=== PATIENT | male | born 1970 | race African-American/Black ===

== ENCOUNTER 2019-08-03 12:35 | Inpatient (IN) | payer OTHER ==
[2019-08-03 13:08] VITALS: BMI 44.9
--- NOTE | 2019-08-03 15:30 | HP ---
CIWA Score Nausea/Vomitin Muscle Tremors: 3 Anxiety: 2 Agitation: 2 Paroxysmal Sweats: 1-Minimal Palms Moist Orientation: 0-Oriented Tacttile Disturbances: 1-Very Mild Itch/Numbness Auditory Disturbances: 0-None Visual Disturbances: 0-None Headache: 2-Mild CIWA-Ar Total Score: 13 - Admission Criteria OASAS Guidelines: Admission for Medically Managed Detox: Requires at least one of the followin. CIWA greater than 12 2. Seizures within the past 24 hours 3. Delirium tremens within the past 24 hours 4. Hallucinations within the past 24 hours 5. Acute intervention needed for co occurring medical disorder 6. Acute intervention needed for co occurring psychiatric disorder 7. Severe withdrawal that cannot be handled at a lower level of care (continued vomiting, continued diarrhea, abnormal vital signs) requiring intravenous medication and/or fluids 8. Admission ROS S - HPI Chief Complaint: i need help to stop drinking alcohol,cocaine,heroin abused Allergies/Adverse Reactions: Allergies Allergy/AdvReac Type Severity Reaction Status Date / Time Penicillins Allergy Verified 08/03/19 12:57 History of Present Illness: this 48 years old with alcohol and cocaine dependence seeking detox,heroin abused,withdrawal symptom, never been in detox before denied seizure denied syncope nicotine dependence 1 pack/day plan to go to rehab after detox unemployed Exam Limitations: No Limitations - Ebola screening Have you traveled outside of the country in the last 21 days: No Have you had contact with anyone from an Ebola affected area: No Do you have a fever: No - Review of Systems Constitutional: Malaise, Night Sweats, Changes in sleep EENT: reports: Tearing, Nose Congestion Respiratory: reports: No Symptoms reported Cardiac: reports: No Symptoms Reported GI: reports: Diarrhea, Nausea, Abdominal cramping : reports: No Symptoms Reported Musculoskeletal: reports: Back Pain, Muscle Pain Integumentary: reports: Dryness Neuro: reports: Headache, Tremors Endocrine: reports: No Symptoms Reported Hematology: reports: No Symptoms Reported Psychiatric: reports: No Sypmtoms Reported, Judgement Intact, Mood/Affect Appropiate, Orientated x3 Other Systems: Reviewed and Negative Patient History - Patient Medical History Hx Anemia: No Hx Asthma: No Hx Chronic Obstructive Pulmonary Disease (COPD): No Hx Cancer: No Hx Cardiac Disorders: No Hx Congestive Heart Failure: No Hx Hypertension: No Hx Hypercholesterolemia: No Hx Pacemaker: No HX Cerebrovascular Accident: No Hx Seizures: No Hx Dementia: No Hx Diabetes: No Hx Gastrointestinal Disorders: No Hx Liver Disease: No Hx Genitourinary Disorders: No Hx Sexually Transmitted Disorders: No Hx Renal Disease (ESRD): No Hx Thyroid Disease: No Hx Human Immunodeficiency Virus (HIV): No (last 05/21 negative) Hx Hepatitis C: No Hx Depression: No Hx Suicide Attempt: No Hx Bipolar Disorder: No Hx Schizophrenia: No Other Medical History: no suicidal,no homicidal,fx of left wrist,fx of right ankle - Patient Surgical History Past Surgical History: Yes Hx Orthopedic Surgery: Yes (fx right ankle 05/20) - PPD History Previous Implant?: Yes Documented Results: Negative w/o proof Implanted On Prior [facility] Admission?: No PPD to be Administered?: Yes - Smoking Cessation Smoking history: Current every day smoker Have you smoked in the past 12 months: Yes Aproximately how many cigarettes per day: 20 Cigars Per Day: 0 Hx Chewing Tobacco Use: No Initiated information on smoking cessation: Yes 'Breaking Loose' booklet given: 08/03/19 - Substances abused Alcohol Substance route: Oral Frequency: Daily Amount used: 1 pint of sara & one 6 pk Age of first use: 12 Date of last use: 08/03/19 Heroin Substance route: Inhalation Frequency: 1-2 times per week Amount used: 1 bag Age of first use: 48 Date of last use: 08/02/19 Cocaine Substance route: Smoking Frequency: 1-2 times per week Amount used: $800 Age of first use: 38 Date of last use: 08/03/19 Admission Physical Exam [facility] - Vital Signs Vital Signs: Vital Signs - 24 hr 08/03/19 08/03/19 12:58 14:49 Temperature 97.2 F L 97.2 F L Pulse Rate 68 68 Respiratory 20 20 Rate Blood Pressure 133/88 133/88 - Physical General Appearance: Yes: Moderate Distress, Tremorous, Irritable, Sweating, Anxious HEENTM: Yes: Normal ENT Inspection, DUSTIN, Pharynx Normal Respiratory: Yes: Within Normal Limits, Lungs Clear, Normal Breath Sounds Neck: Yes: Supple, Trachea in good position Breast: Yes: Within Normal Limits Cardiology: Yes: Within Normal Limits, Regular Rhythm, Regular Rate, S1, S2 Abdominal: Yes: Within Normal Limits, Normal Bowel Sounds, Non Tender, Soft Genitourinary: Yes: Within Normal Limits Back: Yes: Muscle Spasm Musculoskeletal: Yes: Back pain, Muscle Pain Extremities: Yes: Tremors, Other (scars in right ankle) Neurological: Yes: flow specialist II-XII NML intact, Alert, Motor Strength 5/5 Integumentary: Yes: Dry Lymphatic: Yes: Within Normal Limits - Diagnostic (1) Alcohol dependence with uncomplicated withdrawal Current Visit: Yes Status: Acute (2) Cocaine dependence Current Visit: Yes Status: Acute (3) Heroin abuse Current Visit: Yes Status: Acute (4) Fracture of right ankle Current Visit: Yes Status: Acute (5) Nicotine dependence Current Visit: Yes Status: Acute Cleared for Admission S - Detox or Rehab [facility] Level of Care: Medically Managed (patine did not want to bedetox for heroin, stated use it once) Detox Regimen/Protocol: Librium Breathalyzer - Breathalyzer Breathalyzer: 0 Urine Drug Screen - Test Device Lot number: [id number] Expiration date: 04/01/21 - Control Is test valid?: Yes - Results Drug screen NEGATIVE: No Urine drug screen results: GALA-Cocaine, FEN-Fentanyl Inpatient Rehab Admission - Rehab Decision to Admit Inpatient rehab admission?: No
[2019-08-03] MEDS ORDERED: IBUPROFEN 400 MG TABLET (FP) PO PRN (15:43)
[2019-08-03] MEDS ORDERED: ACETAMINOPHEN 325 MG TABLET (FP) PO PRN ×2 (15:43)
[2019-08-03] MEDS ORDERED: METHOCARBAMOL 500 MG TABLET PO PRN (15:43)
[2019-08-03] MEDS ORDERED: MAG HYDROX/AL HYDROX/SIMETH 30 ML UNIT-DOSE CUP PO PRN (15:43)
[2019-08-03] MEDS ORDERED: MENTHOL/PHENOL 1 EACH UD MM PRN (15:43)
[2019-08-03] MEDS ORDERED: MELATONIN 5 MG TABLETS PO PRN (15:43)
[2019-08-03] MEDS ORDERED: MAGNESIUM CITRATE 300 ML BOTTLE PO PRN (15:43)
[2019-08-03] MEDS ORDERED: hydrOXYzine PAMOATE 25 MG CAPSULE (FP) PO PRN (15:43)
[2019-08-03] MEDS ORDERED: chlordiazePOXIDE HCL 25 MG CAPSULE PO PRN (15:43)
[2019-08-03] MEDS ORDERED: BISMUTH SUBSALICYLATE 524 MG/30 ML UD PO PRN (15:43)
[2019-08-03] MEDS ORDERED: MAGNESIUM HYDROX 2400MG/30ML ORAL SUSPENSION 30 ML CUP PO PRN (15:43)
[2019-08-03] MEDS: chlordiazePOXIDE HCL 25 MG CAPSULE PO SCH ×2 (17:39→22:01)
[2019-08-03] MEDS: THIAMINE HCL 100 MG TABLET (FP) PO SCH (22:01)
[2019-08-04] MEDS: chlordiazePOXIDE HCL 25 MG CAPSULE PO SCH ×4 (05:55→23:11)
[2019-08-04 09:46] LABS: HEMATOCRIT 42.8 % (35.4-49); HEMOGLOBIN 14.1 GM/dL (11.7-16.9); MCH 29.7 pg (25.7-33.7); MCHC 32.8 g/dl (32.0-35.9); MEAN CELL VOLUME 90.4 fl (80-96); MEAN PLT VOLUME 9.6 fl (7.5-11.1); PLATELET COUNT 215 K/MM3 (134-434); RBC 4.74 M/mm3 (4.00-5.60); WHITE BLOOD COUNT 5.6 K/mm3 (4.0-10.0)
[2019-08-04 10:08] LABS: ALBUMIN 3.3 g/dl (3.4-5.0); BILIRUBIN,TOTAL 0.9 mg/dL (0.2-1); BLOOD UREA NITROGEN 12.1 mg/dL (7-18); CALCIUM 8.7 mg/dL (8.5-10.1); CREATININE 1.1 mg/dL (0.55-1.3); POTASSIUM 3.9 mmol/L (3.5-5.1); TOT PROT 6.6 g/dl (6.4-8.2)
[2019-08-04] MEDS: PRENATAL VITAMINS W/ FOLIC ACID TABLET (FP) PO SCH (10:11)
[2019-08-04 12:14] LABS: SICKLE CELL SCREEN NEGATIVE (NEGATIVE)
--- NOTE | 2019-08-04 12:39 | PN ---
[facility] CIWA - CIWA Score Nausea/Vomitin-No Nausea/No Vomiting Muscle Tremors: 3 Anxiety: 3 Agitation: 3 Paroxysmal Sweats: 2 Orientation: 0-Oriented Tacttile Disturbances: 0-None Auditory Disturbances: 0-None Visual Disturbances: 0-None Headache: 0-None Present CIWA-Ar Total Score: 11 S Progress Note (SOAP) Subjective: tired sweats interrupted sleep agitation Objective: 08/04/19 12:38 Vital Signs Temperature 97.7 F 08/04/19 09:18 Pulse Rate 63 08/04/19 09:18 Respiratory Rate 18 08/04/19 09:18 Blood Pressure 103/51 L 08/04/19 09:18 O2 Sat by Pulse Oximetry (%) Laboratory Tests 08/04/19 08/04/19 07:45 07:45 WBC 5.6 RBC 4.74 Hgb 14.1 Hct 42.8 MCV 90.4 MCH 29.7 MCHC 32.8 RDW 15.0 Plt Count 215 MPV 9.6 Sickle Cell Screen Negative Sodium 141 Potassium 3.9 Chloride 106 Carbon Dioxide 28 Anion Gap 7 L BUN 12.1 Creatinine 1.1 Est GFR (CKD-EPI)AfAm 90.24 Est GFR (CKD-EPI)NonAf 77.86 Random Glucose 77 Calcium 8.7 Total Bilirubin 0.9 AST 18 ALT 22 Alkaline Phosphatase 74 Total Protein 6.6 Albumin 3.3 L labs noted aaox3 lying down no acute distress Assessment: 08/04/19 12:38 withdrawals Plan: continue detox increase fluids
[2019-08-04] MEDS: THIAMINE HCL 100 MG TABLET (FP) PO SCH (23:11)
[2019-08-05] MEDS: chlordiazePOXIDE HCL 25 MG CAPSULE PO SCH ×4 (06:55→22:17)
[2019-08-05] MEDS: PRENATAL VITAMINS W/ FOLIC ACID TABLET (FP) PO SCH (10:26)
--- NOTE | 2019-08-05 10:48 | PN ---
S CIWA - CIWA Score Nausea/Vomitin-Mild Nausea/No Vomiting Muscle Tremors: 2 Anxiety: 2 Agitation: 2 Paroxysmal Sweats: 2 Orientation: 0-Oriented Tacttile Disturbances: 0-None Auditory Disturbances: 0-None Visual Disturbances: 0-None Headache: 0-None Present CIWA-Ar Total Score: 9 BHS Progress Note (SOAP) Subjective: Interrupted sleep Objective: 08/05/19 10:45 Last Vital Signs Temp Pulse Resp BP Pulse Ox 97.9 F 68 20 123/80 08/05/19 09:26 08/05/19 09:26 08/05/19 09:26 08/05/19 09:26 Laboratory Tests 08/04/19 08/04/19 08/04/19 07:45 07:45 07:45 WBC 5.6 RBC 4.74 Hgb 14.1 Hct 42.8 MCV 90.4 MCH 29.7 MCHC 32.8 RDW 15.0 Plt Count 215 MPV 9.6 Sickle Cell Screen Negative Sodium 141 Potassium 3.9 Chloride 106 Carbon Dioxide 28 Anion Gap 7 L BUN 12.1 Creatinine 1.1 Est GFR (CKD-EPI)AfAm 90.24 Est GFR (CKD-EPI)NonAf 77.86 Random Glucose 77 Calcium 8.7 Total Bilirubin 0.9 AST 18 ALT 22 Alkaline Phosphatase 74 Total Protein 6.6 Albumin 3.3 L RPR Titer Nonreactive Labs reviewed: albumin 3.3 Assessment: 08/05/19 10:45 Withdrawal sxs Mild hypoalbuminemia noted Plan: Continue detox Encouraged PO water intake Hypoalbuminemia, mild: encouraged diet
[2019-08-05] MEDS: THIAMINE HCL 100 MG TABLET (FP) PO SCH (22:17)
[2019-08-06] MEDS ORDERED: chlordiazePOXIDE HCL 10 MG CAPSULE PO PRN
[2019-08-06] MEDS ORDERED: chlordiazePOXIDE HCL 10 MG CAPSULE PO SCH (05:00)
--- NOTE | 2019-08-06 09:04 | PN ---
[facility] CIWA - CIWA Score Nausea/Vomitin-Mild Nausea/No Vomiting Muscle Tremors: 1-None Visible, but [place] Anxiety: 2 Agitation: 2 Paroxysmal Sweats: No Perspiration Orientation: 0-Oriented Tacttile Disturbances: 1-Very Mild Itch/Numbness Auditory Disturbances: 1-Very Mild Visual Disturbances: 0-None Headache: 1-Very Mild CIWA-Ar Total Score: 9 BHS Progress Note (SOAP) Subjective: alert,irritable,anxious,interrupted sleep,pain in the ankle,body Objective: 08/06/19 09:03 Vital Signs Temperature 97.2 F L 08/06/19 06:00 Pulse Rate 75 08/06/19 06:00 Respiratory Rate 20 08/06/19 06:00 Blood Pressure 121/74 08/06/19 06:00 O2 Sat by Pulse Oximetry (%) Assessment: 08/06/19 09:04 withdrawal symptom Plan: continue detox librium regimen
[2019-08-06 09:14] VITALS: BP 116/73; PULSE 72; TEMP 97.7
--- NOTE | 2019-08-06 10:31 | PN ---
S Progress Note Note: patient would like to leave for [facility] and has appointment today, stable for discharge,follow up with after care program as arrangement
--- NOTE | 2019-08-06 10:34 | DS ---
[facility] Detox Discharge Summary Admission Date: 08/03/19 Discharge Date: 08/06/19 - History Present History: Alcohol Dependence, Cocaine Dependence Additional Comments: stable for discharge ,follow up with [facility] residential as arrangement Pertinent Past History: heroin abused history of fx of right ankle ambulation with cane - Physical Exam Results Vital Signs: Vital Signs Temperature 97.7 F 08/06/19 09:13 Pulse Rate 72 08/06/19 09:13 Respiratory Rate 18 08/06/19 09:13 Blood Pressure 116/73 08/06/19 09:13 O2 Sat by Pulse Oximetry (%) Pertinent Admission Physical Exam Findings: withdrawal signs and symptom Laboratory Last Values WBC 5.6 K/mm3 (4.0-10.0) 08/04/19 07:45 RBC 4.74 M/mm3 (4.00-5.60) 08/04/19 07:45 Hgb 14.1 GM/dL (11.7-16.9) 08/04/19 07:45 Hct 42.8 % (35.4-49) 08/04/19 07:45 MCV 90.4 fl (80-96) 08/04/19 07:45 MCH 29.7 pg (25.7-33.7) 08/04/19 07:45 MCHC 32.8 g/dl (32.0-35.9) 08/04/19 07:45 RDW 15.0 % (11.9-15.9) 08/04/19 07:45 Plt Count 215 K/MM3 (134-434) 08/04/19 07:45 MPV 9.6 fl (7.5-11.1) 08/04/19 07:45 Sickle Cell Screen Negative (NEGATIVE) 08/04/19 07:45 Sodium 141 mmol/L (136-145) 08/04/19 07:45 Potassium 3.9 mmol/L (3.5-5.1) 08/04/19 07:45 Chloride 106 mmol/L (98-107) 08/04/19 07:45 Carbon Dioxide 28 mmol/L (21-32) 08/04/19 07:45 Anion Gap 7 MMOL/L (8-16) L 08/04/19 07:45 BUN 12.1 mg/dL (7-18) 08/04/19 07:45 Creatinine 1.1 mg/dL (0.55-1.3) 08/04/19 07:45 Est GFR (CKD-EPI)AfAm 90.24 08/04/19 07:45 Est GFR (CKD-EPI)NonAf 77.86 08/04/19 07:45 Random Glucose 77 mg/dL (74-106) 08/04/19 07:45 Calcium 8.7 mg/dL (8.5-10.1) 08/04/19 07:45 Total Bilirubin 0.9 mg/dL (0.2-1) 08/04/19 07:45 AST 18 U/L (15-37) 08/04/19 07:45 ALT 22 U/L (13-61) 08/04/19 07:45 Alkaline Phosphatase 74 U/L (45-117) 08/04/19 07:45 Total Protein 6.6 g/dl (6.4-8.2) 08/04/19 07:45 Albumin 3.3 g/dl (3.4-5.0) L 08/04/19 07:45 RPR Titer Nonreactive (NONREACTIVE) 08/04/19 07:45 - Treatment Hospital Course: Detox Protocol Followed, Detoxed Safely, Responded well, Discharged Condition Good - Medication Discharge Medications: Ambulatory Orders Naproxen [Naprosyn -] 375 mg PO PRN PRN 08/03/19 - Diagnosis (1) Alcohol dependence with uncomplicated withdrawal Current Visit: Yes Status: Acute (2) Cocaine dependence Current Visit: Yes Status: Acute (3) Heroin abuse Current Visit: Yes Status: Acute (4) Fracture of right ankle Current Visit: Yes Status: Acute (5) Nicotine dependence Current Visit: Yes Status: Acute - AMA Did Patient Leave Against Medical Advice: No
--- NOTE | 2019-08-06 11:05 | EKG ---
Test Reason : Blood Pressure : / mmHG Vent. Rate : 058 BPM Atrial Rate : 058 BPM P-R Int : 144 ms QRS Dur : 094 ms QT Int : 438 ms P-R-T Axes : 015 025 -13 degrees QTc Int : 429 ms SINUS BRADYCARDIA WITH PREMATURE ATRIAL COMPLEXES NONSPECIFIC T WAVE ABNORMALITY ABNORMAL ECG NO PREVIOUS ECGS AVAILABLE Confirmed by ANANYA BAZZI, PAIGE ([id number]) on 08/06/2019 11:04:49 AM Referred By: Confirmed By:PAIGE HARE MD
[2019-08-07] MEDS ORDERED: chlordiazePOXIDE HCL 10 MG CAPSULE PO SCH (05:00)
[2019-08-08] MEDS ORDERED: chlordiazePOXIDE HCL 10 MG CAPSULE PO ONE (05:00)
== END 2019-08-06 11:20 | disposition home or self-care (01) | DRG 773 ==
LOC: YASAS 12:35 → Y6N 15:52
PROVIDERS: ADMIT Allergy & Immunology; ATTEND Allergy & Immunology
PROC: HZ2ZZZZ Detoxification Services for Substance Abuse Treatment (ICD-10-PCS; principal; 2019-08-03)
DX: F10.230 Alcohol dependence with withdrawal, uncomplicated (principal); F14.20 Cocaine dependence, uncomplicated; F11.10 Opioid abuse, uncomplicated; F17.210 Nicotine dependence, cigarettes, uncomplicated; R77.0 Abnormality of albumin; Z88.0 Allergy status to penicillin; Z56.0 Unemployment, unspecified
CPT/HCPCS: 36415; 80053; 85027; 85660; 86593; 93005; 93010

== ENCOUNTER 2022-09-06 12:23 | Inpatient (IN) | payer OTHER ==
[2022-09-06 13:43] VITALS: BMI 46.1
[2022-09-06] MEDS ORDERED: IBUPROFEN 400 MG TABLET (FP) PO PRN (16:14)
[2022-09-06] MEDS ORDERED: P-EPHED 60MG/TRIPROLIDI 2.5MG TABLET PO PRN (16:14)
[2022-09-06] MEDS ORDERED: BENZOCAINE/MENTHOL (CHLORASEPTIC ) LOZENGE MM PRN (16:14)
[2022-09-06] MEDS ORDERED: NICOTINE 10 MG CARTRIDGE (INHALER) IH PRN (16:14)
[2022-09-06] MEDS ORDERED: MAGNESIUM HYDROX 2400MG/30ML ORAL SUSPENSION 30 ML CUP PO PRN (16:14)
[2022-09-06] MEDS ORDERED: MAG HYDROX/AL HYDROX/SIMETH 30 ML UNIT-DOSE CUP PO PRN (16:14)
[2022-09-06] MEDS ORDERED: guaiFENesin 200 MG/10 ML 10 ML UNIT-DOSE CUPS PO PRN (16:14)
[2022-09-06] MEDS ORDERED: hydrOXYzine PAMOATE 25 MG CAPSULE (FP) PO PRN (16:14)
[2022-09-06] MEDS ORDERED: POLYETHYLENE GLYCOL (HEALTHYLAX) 3350 17 GM PACKET PO PRN (16:14)
[2022-09-06] MEDS ORDERED: ACETAMINOPHEN 325 MG TABLET (FP) PO PRN (16:14)
[2022-09-06] MEDS ORDERED: LOPERAMIDE HCL 2 MG CAPSULE PO PRN (16:14)
[2022-09-06] MEDS: PRENATAL VITAMINS W/ FOLIC ACID TABLET (FP) PO SCH (19:19)
[2022-09-06] MEDS: NICOTINE 7 MG/24 HOURS TOPICAL PATCH TD SCH (19:20)
[2022-09-06] MEDS: MELATONIN 5 MG TABLETS PO SCH (21:31)
[2022-09-06] MEDS: THIAMINE HCL 100 MG TABLET (FP) PO SCH (21:31)
[2022-09-06] MEDS ORDERED: TUBERCULIN PPD 5 TU/0.1ML VIAL ID ONE (23:13)
[2022-09-07] MEDS: NICOTINE 7 MG/24 HOURS TOPICAL PATCH TD SCH (09:50)
[2022-09-07] MEDS: PRENATAL VITAMINS W/ FOLIC ACID TABLET (FP) PO SCH (09:50)
[2022-09-07 11:33] LABS: HEMATOCRIT 44.7 % (35.4-49); HEMOGLOBIN 14.5 GM/dL (11.7-16.9); MCH 29.5 pg (25.7-33.7); MCHC 32.5 g/dl (32.0-35.9); MEAN CELL VOLUME 90.7 fl (80-96); MEAN PLT VOLUME 10.1 fl (7.5-11.1); PLATELET COUNT 202 10^3/uL (134-434); RBC 4.93 M/mm3 (4.00-5.60); RDW 14.8 % (11.9-15.9); WHITE BLOOD COUNT 5.4 K/mm3 (4.0-10.0)
[2022-09-07 12:05] LABS: SYPHILIS W/ RPR CONF NON-REACTIVE (NONREACTIVE)
[2022-09-07 12:10] LABS: CALCIUM 9.1 mg/dL (8.5-10.1)
[2022-09-07 12:11] LABS: ALBUMIN 3.7 g/dl (3.4-5.0); BLOOD UREA NITROGEN 8.3 mg/dL (7-18)
[2022-09-07 12:14] LABS: CREATININE 1.2 mg/dL (0.55-1.3)
[2022-09-07 12:16] LABS: BILIRUBIN,TOTAL 0.6 mg/dL (0.2-1); TOT PROT 6.9 g/dl (6.4-8.2)
[2022-09-07] MEDS ORDERED: NICOTINE 7 MG/24 HOURS TOPICAL PATCH TD PRN (13:25)
[2022-09-07] MEDS ORDERED: PRENATAL VITAMINS W/ FOLIC ACID TABLET (FP) PO PRN (13:26)
[2022-09-07] MEDS: MELATONIN 5 MG TABLETS PO SCH (21:45)
[2022-09-07] MEDS: THIAMINE HCL 100 MG TABLET (FP) PO SCH (21:45)
[2022-09-08] MEDS: THIAMINE HCL 100 MG TABLET (FP) PO SCH (21:17)
[2022-09-08] MEDS: MELATONIN 5 MG TABLETS PO SCH (21:18)
[2022-09-09] MEDS: MELATONIN 5 MG TABLETS PO SCH (21:39)
[2022-09-09] MEDS: THIAMINE HCL 100 MG TABLET (FP) PO SCH (21:39)
[2022-09-10 06:26] VITALS: BP 106/63; PULSE 73; RESP 18; TEMP 97.3
== END 2022-09-10 12:41 | disposition home or self-care (01) | DRG 895 ==
LOC: YASAS 12:23 → Y3E 18:15
PROVIDERS: ADMIT Allergy & Immunology; ATTEND Psychiatry & Neurology Pain Medicine
PROC: HZ42ZZZ Group Counseling for Substance Abuse Treatment, Cognitive-Behavioral (ICD-10-PCS; principal; 2022-09-06)
DX: F14.20 Cocaine dependence, uncomplicated (principal); F17.210 Nicotine dependence, cigarettes, uncomplicated; F32.A Depression, unspecified; G47.33 Obstructive sleep apnea (adult) (pediatric); Z88.0 Allergy status to penicillin
CPT/HCPCS: 36415; 80053; 85027; 86780; 86803; C9803-CS; U0003; U0005